=== PATIENT | male | born 1980 ===

== ENCOUNTER 2017-01-29 11:30 | Emergency (ER) | payer SELFPAY ==
[2017-01-29 11:35] VITALS: BP 130/75; PULSE 81; RESP 18; TEMP 97.7; O2SAT 100
--- NOTE | 2017-01-29 12:27 | ED PDOC ---
Upper Extremity Pain/Injury Time Seen by Provider: 01/29/17 11:52 Chief Complaint (Nursing): Upper Extremity Problem/Injury History Per: Patient Additional Complaint(s): Info obtained with [employer] services. Pt is a 36 yr old male who states that he was washing his shoes 3 days ago and while vigorously shaking the shoes, he developed pain to his right forearm. No additional complaints. Denies direct trauma. Tylenol does help his symptoms. PMD: [facility] Past Medical History Reviewed: Historical Data, Nursing Documentation, Vital Signs Vital Signs: Last Vital Signs Temp 97.7 F 01/29/17 11:35 Pulse 81 01/29/17 11:35 Resp 18 01/29/17 11:35 BP 130/75 01/29/17 11:35 Pulse Ox 100 01/29/17 11:35 - Medical History PMH: Pancreatitis - Family History Family History: States: No Known Family Hx - Social History Current smoker - smoking cessation education provided: No Alcohol: Other (former drinker) - Immunization History Hx Tetanus Toxoid Vaccination: No Hx Influenza Vaccination: No Hx Pneumococcal Vaccination: No - Home Medications Home Medications: Ambulatory Orders Medication Instructions Recorded Ibuprofen [Motrin] 1 tab PO Q8 PRN #30 tab 01/29/17 - Allergies Allergies/Adverse Reactions: Allergies Allergy/AdvReac Type Severity Reaction Status Date / Time No Known Allergies Allergy Verified 11/24/16 17:56 Review of Systems Cardiovascular: Negative for: Chest Pain Respiratory: Negative for: Shortness of Breath Musculoskeletal: Positive for: Arm Pain Skin: Negative for: Rash Physical Exam - Reviewed Nursing Documentation Reviewed: Yes Vital Signs Reviewed: Yes - Physical Exam Appears: Positive for: Well, Non-toxic Head Exam: Positive for: ATRAUMATIC, NORMAL INSPECTION, NORMOCEPHALIC Skin: Positive for: Normal Color, Warm, Dry Eye Exam: Positive for: EOMI Neck: Positive for: Normal Cardiovascular/Chest: Positive for: Regular Rate, Rhythm Respiratory: Positive for: Normal Breath Sounds Extremity: Positive for: Normal ROM, Other (tenderness to right forearm along distal radius; no neurovascular deficits) - ECG O2 Sat by Pulse Oximetry: 100 Medical Decision Making Medical Decision Making: Initial Impression: Right forearm pain Differential diagnosis: likely soft tissue injury, bony injury (less likely) Initial Plan: Pain medication; xrays Disposition - Clinical Impression Clinical Impression: Forearm strain - Patient ED Disposition Is Patient to be Admitted: No - Disposition Referrals: [facility] [Outside] Disposition: Routine/Home Disposition Time: 14:06 Condition: STABLE Additional Instructions: Mr. Mcgovern, thank you for letting us take care of you today. Return to the ER if your symptoms worsen. Take the medication listed below as prescribed. Try to rest and elevate your forearm for the next couple of days. Cold packs may help also. Follow up at our [facility] next week. Call the phone number listed below to make an appointment. Prescriptions: Ibuprofen [Motrin] 1 tab PO Q8 PRN #30 tab PRN Reason: Pain, Moderate (4-7) Instructions: Contusion in Adults (ED) Forms: [facility] (Swazi) Print Language: BULGARIAN - POA Present On Arrival: None
--- NOTE | 2017-01-29 15:51 | RAD ---
HISTORY: Right forearm pain COMPARISON: No prior FINDINGS: BONES: Normal. No fracture. JOINTS: Normal. No osteoarthritis. SOFT TISSUE: Normal. OTHER FINDINGS: None . IMPRESSION: Normal Bone Xray.
== END 2017-01-29 14:26 | disposition home or self-care (01) ==
LOC: H.ER 11:30
DX: S53.401A Unspecified sprain of right elbow, initial encounter (principal); X50.3XXA Overexertion from repetitive movements, initial encounter; Y92.89 Other specified places as the place of occurrence of the external cause

== ENCOUNTER 2018-05-07 20:38 | Emergency (ER) | payer SELFPAY ==
[2018-05-07] MEDS ORDERED: Sodium Chloride 0.9% 1,000 ML IV STA (21:07)
--- NOTE | 2018-05-07 21:56 | ED PDOC ---
HPI: Abdomen Time Seen by Provider: 05/07/18 20:57 Chief Complaint (Nursing): Abdominal Pain Chief Complaint (Provider): Abdominal Pain History Per: Patient History/Exam Limitations: no limitations Onset/Duration Of Symptoms: Days (x2) Outside of [place] travel?: No Current Symptoms Are (Timing): Still Present Location Of Pain/Discomfort: LUQ, LLQ Quality Of Discomfort: Cramping Additional Complaint(s): 37 y/o male with no significant PMHx presents to the ED for evaluation of left sided abdominal pain associated with six episodes of non-bloody diarrhea, myalgia and a tactile fever, onset 2 days. Patient reports pain as "cramping" and rate the pain as a 7/10. Patient also reports of taking Advil yesterday with no relief and has not taken anything today. Otherwise: (-) nausea, (-) vomiting, (-) cough, (-) shortness of breath, (-) urinary symptoms, (-) hematuria, (-) flank pain, (-) back pain, (-) recent travel. PMD: No Provider Past Medical History Reviewed: Historical Data, Nursing Documentation, Vital Signs Vital Signs: Last Vital Signs Temp 99.4 F 05/07/18 20:48 Pulse 102 H 05/07/18 20:48 Resp 17 05/07/18 20:48 BP 130/84 05/07/18 20:48 Pulse Ox 96 05/08/18 02:53 - Medical History PMH: No Chronic Diseases - Surgical History Surgical History: No Surg Hx - Family History Family History: States: Unknown Family Hx - Social History Current smoker - smoking cessation education provided: No Alcohol: Social Drugs: Denies - Home Medications Home Medications: Ambulatory Orders Medication Instructions Recorded Ibuprofen [Motrin] 1 tab PO Q8 PRN #30 tab 01/29/17 Dicyclomine [Bentyl] 20 mg PO Q6 PRN #12 tab 05/08/18 Ibuprofen [Motrin Tab] 600 mg PO Q6 PRN #30 tab 05/08/18 - Allergies Allergies/Adverse Reactions: Allergies Allergy/AdvReac Type Severity Reaction Status Date / Time No Known Allergies Allergy Verified 05/07/18 20:53 Review of Systems ROS Statement: Except As Marked, All Systems Reviewed And Found Negative Constitutional: Positive for: Fever, Other (Myalgia) Respiratory: Negative for: Cough, Shortness of Breath Gastrointestinal: Positive for: Abdominal Pain, Diarrhea. Negative for: Nausea , Vomiting Genitourinary Male: Negative for: Dysuria, Frequency, Hematuria Musculoskeletal: Negative for: Back Pain Physical Exam - Reviewed Nursing Documentation Reviewed: Yes Vital Signs Reviewed: Yes - Physical Exam Comments: GENERAL APPEARANCE: Patient is resting comfortably, awake, alert, oriented x 3, in mild painful distress. SKIN: Warm, dry; (-) cyanosis. EYES: (-) conjunctival pallor, (-) scleral icterus. ENMT: Mucous membranes moist. NECK: (-) tenderness, (-) stiffness, (-) lymphadenopathy. CHEST AND RESPIRATORY: (-) rales, (-) rhonchi, (-) wheezes; breath sounds equal bilaterally. HEART AND CARDIOVASCULAR: (-) irregularity; (-) murmur, (-) gallop. ABDOMEN AND GI: (-) distention. Bowel sounds active; (+) left lower and left upper quadrant tenderness. (-) guarding, (-) rebound, (-) palpable masses, (-) CVA tenderness. EXTREMITIES: (-) deformity, (-) edema, (+) distal pulses. NEURO AND PSYCH: Mental status as above; (-) focal findings. - Laboratory Results Result Diagrams: 05/07/18 22:35 05/07/18 22:35 Urine dip results: Positive for: Blood (moderate), Ketones (40), Bilirubin ( small), Protein (30). Negative for: Leukocyte Esterase, Nitrate, Glucose - ECG O2 Sat by Pulse Oximetry: 96 (RA) Pulse Ox Interpretation: Normal Medical Decision Making Medical Decision Making: Time: 2108 Impression: Abdominal pain Plan: -- CMP -- Lipase -- ED Urine Dipstick -- CBC with differentials -- Bentyl 20 mg PO -- Sodium Chloride IV 999 mls/hr -- Pepcid 40 mg IVP -- Toradol 30 mg IVP -- Budget Controller -- IV Insertion -- Glucose, Blood, POC 2255 Udip reviewed. U/A and U/C ordered. 2305 Accucheck: 70 2345 Labs reviewed and grossly unremarkable. Lipase: 65 Patient with persistent pain on re-evaluation. CT abd/pel with PO and IV contrast ordered. 0248 CT Abd/pelvis FINDINGS: Lower thorax: There is minimal bibasilar atelectatic change or scarring. ABDOMEN: Liver: Normal. No mass. Gallbladder and bile ducts: Normal. No calcified stones. No ductal dilation. Pancreas: Normal. No ductal dilation. Spleen: Normal. No splenomegaly. Adrenals: Normal. No mass. Kidneys and ureters: Normal. No hydronephrosis. Stomach and bowel: There is abnormal wall thickening involving much of the colon but particularly the transverse colon where there is additional mild fat stranding present, suspicious for nonspecific colitis. Appendix: The appendix is unremarkable and seen best on axial image 49 of series 2. PELVIS: Bladder: Unremarkable as visualized. Reproductive: Unremarkable as visualized. ABDOMEN and PELVIS: Intraperitoneal space: Normal. No free air. No significant fluid collection. Bones/joints: No acute fracture. No dislocation. Soft tissues: Unremarkable. Vasculature: Normal. No abdominal aortic aneurysm. Lymph nodes: Normal. No enlarged lymph nodes. IMPRESSION: There is abnormal wall thickening involving much of the colon but particularly the transverse colon where there is additional mild fat stranding present, suspicious for nonspecific colitis. 0255 Repeat HR: __ On re-evaluation, patient reports improvement of symptoms. On exam, patient remains AAOx3, in no acute distress. Lungs clear to auscultation, cardiac RRR, abdomen soft, non-tender, repeat neuro exam shows no focal findings. VSS, stable for discharge. Lab/Diagnostic results d/w the patient in great detail. Diagnosis of abdominal pain, colitis d/w the patient. Based on history, exam and diagnostic results, plan will be for outpatient follow up. Patient instructed to follow-up with pmd / referral provided / the clinic in 1- 2 days without fail. Advised to take medication as prescribed. Return to the emergency room at any time for any new or worsening symptoms. Patient states he fully agrees with and understands discharge instructions. States that he agrees with the plan and disposition. Verbalized and repeated discharge instructions and plan. I have given the patient opportunity to ask any additional questions. Scribe Attestation: Documented by Carlyle William acting as a scribe for Prema Boone PA-C. Provider Scribe Attestation: All medical record entries made by the Scribe were at my direction and personally dictated by me. I have reviewed the chart and agree that the record accurately reflects my personal performance of the history, physical exam, medical decision making, and the department course for this patient. I have also personally directed, reviewed, and agree with the discharge instructions and disposition. Disposition - Clinical Impression Clinical Impression: Abdominal pain, Colitis, Diarrhea - Patient ED Disposition Is Patient to be Admitted: No Counseled Patient/Family Regarding: Studies Performed, Diagnosis, Need For Followup, Rx Given - Disposition Referrals: [facility] [Outside] Connor Chatman MD [Staff Provider] - Disposition: Routine/Home Disposition Time: 03:01 Condition: STABLE Additional Instructions: La atencin mdica de emergencia que recibi hoy se dirigi a los sntomas agudos de presentacin. Si le prescribieron algn medicamento, por favor ll divine y d barb se lo indic. Kaleigh sntomas pueden tardar varios watts en resolverse. Regrese al Departamento de Emergencia en cualquier momento si los s ntomas empeoran, no mejoran o si surge algn otro problema. Comunquese con emrchant mdico en 2 watts para alida reevaluacin y seguimiento / o llame a mallika de los mdicos / clnicas a los que ames referido y que figura en el formulario de Informacin de visitas del paciente que se incluye en merchant paquete de triston. Lleve todos los documentos que recibi al momento del triston junto con los medicamentos a merchant visita de seguimiento. Nuestro tratamiento no puede reemplazar la atencin mdica en curso por parte de un proveedor de atencin primaria (PCP) fuera del departamento de emergencias. Prescriptions: Dicyclomine [Bentyl] 20 mg PO Q6 PRN #12 tab PRN Reason: Diarrhea Ibuprofen [Motrin Tab] 600 mg PO Q6 PRN #30 tab PRN Reason: Pain, Moderate (4-7) Instructions: Acute Abdomen (Belly Pain), Adult (DC), Diarrhea in Adolescents and Adults Forms: [employer] (Tanzanian) Print Language: LATVIAN - POA Present On Arrival: None
[2018-05-07 22:50] LABS: BASO % 0.4 % (0.0-2.0); EOS % 0.3 % (0.0-4.0); LYMPH # 1.4 K/uL (1.0-4.3); LYMPH % 15.8 % (20.0-40.0); MEAN CELL VOLUME 91.7 fl (80.0-94.0); MEAN CORPUSCULAR HEMOGLOBIN 31.6 pg (27.0-31.0); MEAN CORPUSCULAR HGB CONC 34.5 g/dL (33.0-37.0); MEAN PLATELET VOLUME 9.4 fl (7.2-11.7); MONO # 0.8 K/uL (0.0-0.8); MONO % 9.1 % (0.0-10.0); NEUT # 6.5 K/uL (1.8-7.0); NEUT % 74.4 % (50.0-75.0); RBC 4.76 Mil/uL (4.40-5.90); RED CELL DISTRIBUTION WIDTH 13.8 % (11.5-14.5); WHITE BLOOD COUNT 8.8 K/uL (4.8-10.8)
[2018-05-07 22:59] LABS: ALB/GLOB RATIO 1.2 (1.0-2.1); ALBUMIN 4.8 g/dL (3.5-5.0); ALT/SGPT 61 U/L (21-72); AST/SGOT 43 U/L (17-59); BLOOD UREA NITROGEN 16 mg/dl (9-20); CALCIUM 9.9 mg/dL (8.4-10.2); GFR AFRICAN-AMERICAN > 60; GFR NON-AFRICAN AMERICAN > 60; LIPASE 65 U/L (23-300)
[2018-05-07] MEDS ORDERED: Iohexol 240 (50 ml) PO ONE (23:45)
[2018-05-08] MEDS ORDERED: Iohexol 240 (50 ml) ONE (00:41)
[2018-05-08 01:29] LABS: SQUAMOUS EPITHIAL < 1 /hpf (0-5); URINE BILIRUBIN NEGATIVE (NEGATIVE); URINE BLOOD SMALL (NEGATIVE); URINE CLARITY SLIGHTY-CLOUDY (Clear); URINE COLOR YELLOW (YELLOW); URINE GLUCOSE (UA) NEG (Normal); URINE LEUKOCYTE ESTERASE NEG Leu/uL (Negative); URINE PROTEIN 30 mg/dL (NEGATIVE); URINE UROBILINOGEN 0.2-1.0 mg/dL (0.2-1.0)
[2018-05-08] MEDS ORDERED: Iohexol 300 100 ML IJ ONE (02:08)
[2018-05-08] MEDS ORDERED: Sodium Chloride 0.9% 50 ML IV ONE (02:08)
[2018-05-08 04:47] VITALS: BP 119/76; PULSE 81; RESP 18; TEMP 97.6; O2SAT 100
--- NOTE | 2018-05-08 10:57 | CT ---
Date of service: 05/08/2018 PROCEDURE: CT Abdomen and Pelvis with Oral contrast. HISTORY: LUQ, LLQ pain COMPARISON: None. TECHNIQUE: Contiguous axial images of the abdomen and pelvis of performed following oral and intravenous injection of approximately 90 cc Omnipaque 300 contrast material. Additional 2D sagittal and coronal reformats generated. This CT exam was performed using one or more of the following dose reduction techniques: Automated exposure control, adjustment of the mA and/or kV according to patient size, and/or use of iterative reconstruction technique. Radiation dose: Total exam DLP = 382.39 mGy-cm. FINDINGS: LOWER THORAX: Heart size within range of normal. No significant pericardial effusion. There is a small hiatal hernia with oral contrast material in the distal esophageal lumen suggesting reflux. Rule out dysmotility. LIVER: Liver exhibits normal size measuring just over 16 cm in CC dimension. Mild fatty hepatic infiltration. No obvious hepatic mass collection or calcification. Portal and splenic veins are opacified. GALLBLADDER AND BILE DUCTS: The gallbladder physiologically distended. No evidence of intraluminal gallbladder calculi PANCREAS: Unremarkable. No mass. No ductal dilatation. SPLEEN: Unremarkable. No splenomegaly. ADRENALS: There are no adrenal lesions. KIDNEYS AND URETERS: Kidneys demonstrate symmetric nephrograms. No evidence of nephrolithiasis or hydronephrosis. BLADDER: Urinary bladder physiologically distended. No evidence of intraluminal urinary bladder calculi. The evans. REPRODUCTIVE: Unremarkable. APPENDIX: Normal appendix. . BOWEL: There is marked wall thickening of the transverse and to a lesser degree at ascending and less so the descending colon consistent with a nonspecific colitis. The stomach is incompletely distended which presumably accounts thick-walled appearance. Gastritis or other intrinsic wall abnormality cannot be excluded PE. The visualized loops of small bowel exhibit normal contour and caliber. No evidence acute mechanical small bowel obstruction. PERITONEUM: Unremarkable. No fluid collection. No free air. Small fat containing umbilical hernia. LYMPH NODES: Unremarkable. No enlarged lymph nodes. VASCULATURE: Unremarkable. No aortic aneurysm. BONES: Mild multilevel degenerative spondylosis of the lower thoracic and lumbar spine. OTHER FINDINGS: None. IMPRESSION: Findings consistent with a nonspecific colitis. Rule out infectious versus inflammatory etiologies. No evidence of appendicitis. Mild fatty hepatic infiltration.
== END 2018-05-08 04:10 | disposition home or self-care (01) ==
LOC: H.ER 20:38
DX: K52.9 Noninfective gastroenteritis and colitis, unspecified (principal); R10.9 Unspecified abdominal pain; R19.7 Diarrhea, unspecified
CPT/HCPCS: 74177; 80053; 81003; 82948; 83690; 85025; 87086; 96374; 96375; 99284; J1885; J7030; Q9966; Q9967